=== PATIENT | male | born 1965 | race Caucasian/White ===

== ENCOUNTER 2025-01-15 20:46 | Emergency (ER) | payer MEDICAID ==
[~2025-01-15] VITALS: Ht 170.2 cm; Wt 129.6 kg
[~2025-01-15 20:46] MED LIST: GABA-1181 PO; MELA5TAB40 PO; NALT50TA33 PO; OLAN10TA26 PO; QUET25TA36 PO
[2025-01-15 21:11] VITALS: TEMP 98.6
[2025-01-15 22:28] VITALS: BP 128/83; PULSE 94; RESP 21; O2SAT 97
[2025-01-15 23:05] LABS: PLATELET COUNT (AUTO) 270 K/uL (150-450); RED BLOOD CELL COUNT(AUTO) 4.75 MIL/uL (4.50-5.90); RED CELL DISTRIBUTION WIDTH 15.5 % (11.5-14.5); WHITE BLOOD COUNT (AUTO) 6.0 K/uL (4.5-11.0)
[2025-01-15 23:07] LABS: CALCIUM, TOTAL 8.1 mg/dL (8.8-10.5); CREATININE 0.85 mg/dL (0.60-1.30); GLOMERULAR FILTR. RATE CALC > 60 mL/min (>60); GLUCOSE,RANDOM 125 mg/dL (70-110); SODIUM SERUM 143 mmol/L (136-145); UREA NITROGEN, BLOOD 13 mg/dL (7-18)
[2025-01-16] MEDS ORDERED: GABA-1181 PO (00:06)
[2025-01-16] MEDS ORDERED: NALT50TA33 PO (00:06)
== END 2025-01-16 03:24 | disposition home or self-care (01) ==
LOC: EMS 20:49
DX: F10.229 Alcohol dependence with intoxication, unspecified (principal); F17.210 Nicotine dependence, cigarettes, uncomplicated; F12.90 Cannabis use, unspecified, uncomplicated; F15.90 Other stimulant use, unspecified, uncomplicated; I10 Essential (primary) hypertension; M10.9 Gout, unspecified; Z79.899 Other long term (current) drug therapy; Y90.9 Presence of alcohol in blood, level not specified
CPT/HCPCS: 80048; 83735; 85025; 99283